=== PATIENT | female | born 1985 | race Caucasian/White ===

== ENCOUNTER 2023-02-26 06:45 | Day surgery (SDC) | payer OTHER ==
[2023-02-26] VITALS (216 sets, daily range): BP systolic 78–168; BP diastolic 41–140
[2023-02-26 09:01] LABS: BASO% 0.1 % (0-3); HEMATOCRIT 39.7 % (37.0-47.0); IMMATURE GRANULOCYTES 0.6 % (0.0-5.0); LYMPH% 11.3 % (15-41); MEAN CELL VOLUME 91.3 fL CALC (80.0-100.0); MEAN CORPUSCULAR HGB 29.9 pG CALC (26.0-32.0); MEAN CORPUSCULAR HGB CONC 32.7 g/dL CAL (32.0-36.0); MONO% 4.5 % (2-13); NEUT# 9.95 thou/uL (2.00-7.15); NEUT% 83.5 % (42-76); RED BLOOD COUNT 4.35 mill/uL (4.20-5.60); RED CELL DISTRI WIDTH 12.5 % (11.5-15.5)
[2023-02-26 09:15] LABS: ALBUMIN 4.8 g/dL (3.2-5.0); ALKALINE PHOSPHATASE 74 u/l (38-126); ANION GAP 12 (6-22 (CALC)); BILIRUBIN, TOTAL 0.4 mg/dL (0.02-1.3); BUN 9 mg/dL (7-17); BUN/CREATININE RATIO 14 (12-20 (CALC)); CARBON DIOXIDE 28 mmol/l (22-30); CHLORIDE 103 mmol/l (95-108); CREATININE 0.6 mg/dL (0.5-1.0); GFR FOR AFR.AMER. > 60 ML/MIN (>=60 (CALC)); GFR OTHER RACES > 60 ML/MIN (>=60 (CALC)); POTASSIUM 4.3 mmol/l (3.5-5.1); SGOT/AST 34 u/l (14-36); SODIUM 138 mmol/l (137-146); TOTAL PROTEIN 7.7 g/dL (6.3-8.2)
[2023-02-26] MEDS ORDERED: LAMICTAL150 M1 PO (10:20)
[2023-02-26] MEDS ORDERED: CYMBALTA60 MG PO (10:21)
[2023-02-26] MEDS ORDERED: ZOLOFT100 MG PO (10:21)
[2023-02-26] MEDS ORDERED: KLONOPIN0.5 MG PO (10:22)
[2023-02-26] MEDS ORDERED: OTEZLA 10 & 201 TAB PO (10:23)
[2023-02-26] MEDS ORDERED: SECUKINUMAB IM (10:25)
[2023-02-26] MEDS ORDERED: NALTREXONE50 MG PO (13:40)
[2023-02-26] MEDS ORDERED: CLONIDINE0.1 MG PO (13:40)
[2023-02-26] MEDS ORDERED: KLONOPIN2 MG PO (13:41)
[2023-02-27 04:28] VITALS: BP 145/71
[2023-02-27 07:16] VITALS: BP 138/86
[2023-02-27 07:36] VITALS: BP 138/86
[2023-02-27 08:15] VITALS: BP 138/86
[2023-02-27 08:43] LABS: BASO% 0.1 % (0-3); HEMATOCRIT 39.6 % (37.0-47.0); HEMOGLOBIN 13.2 g/dl (12.0-16.0); IMMATURE GRANULOCYTES 0.4 % (0.0-5.0); LYMPH% 6.6 % (15-41); MEAN CELL VOLUME 88.8 fL CALC (80.0-100.0); MEAN CORPUSCULAR HGB 29.6 pG CALC (26.0-32.0); MEAN CORPUSCULAR HGB CONC 33.3 g/dL CAL (32.0-36.0); MONO% 3.9 % (2-13); NEUT# 17.07 thou/uL (2.00-7.15); RED BLOOD COUNT 4.46 mill/uL (4.20-5.60); RED CELL DISTRI WIDTH 12.5 % (11.5-15.5)
[2023-02-27 08:51] LABS: ALBUMIN 4.8 g/dL (3.2-5.0); ALKALINE PHOSPHATASE 78 u/l (38-126); ANION GAP 15 (6-22 (CALC)); BUN 8 mg/dL (7-17); BUN/CREATININE RATIO 14 (12-20 (CALC)); CARBON DIOXIDE 23 mmol/l (22-30); CHLORIDE 104 mmol/l (95-108); CREATININE 0.6 mg/dL (0.5-1.0); GFR FOR AFR.AMER. > 60 ML/MIN (>=60 (CALC)); GFR OTHER RACES > 60 ML/MIN (>=60 (CALC)); MAGNESIUM 1.9 mg/dL (1.6-2.3); POTASSIUM 3.6 mmol/l (3.5-5.1); SGOT/AST 37 u/l (14-36); SODIUM 138 mmol/l (137-146); TOTAL PROTEIN 7.7 g/dL (6.3-8.2)
[2023-02-27 08:57] LABS: BILIRUBIN, TOTAL 0.6 mg/dL (0.02-1.3)
== END 2023-02-27 17:07 | disposition home or self-care (01) | DRG 897 ==
LOC: ANR 06:45 → MS2 06:45 → ANR 11:00 → MS2 17:59 → ANR 02-27 17:07 → MS2 02-27 17:07
PROVIDERS: ATTEND Anesthesiology Critical Care Medicine
DX: F11.20 Opioid dependence, uncomplicated (principal)
CPT/HCPCS: J2060; J2354; J3475